=== PATIENT | male | born 1995 | race Two or more races ===

== ENCOUNTER 2020-10-25 18:07 | Emergency (ER) | payer OTHER ==
[2020-10-25 18:17] VITALS: BP 115/57; PULSE 83; TEMP 97.7; BMI 24.3
[2020-10-25] MEDS ORDERED: KETOROLAC TROMETHAMINE 30 MG/1 ML VIAL ONE (19:11)
[2020-10-25] MEDS ORDERED: KETOROLAC TROMETHAMINE 30 MG/1 ML VIAL IM ONE (19:11)
== END 2020-10-25 19:17 | disposition home or self-care (01) ==
LOC: JERFT 18:07
PROC: 3E023GC Introduction of Other Therapeutic Substance into Muscle, Percutaneous Approach (ICD-10-PCS; principal; 2020-10-25)
DX: M25.512 Pain in left shoulder (principal)
CPT/HCPCS: 73030-TC-LT-FY; 99284-25

== ENCOUNTER 2021-06-17 21:28 | Emergency (ER) | payer OTHER ==
[2021-06-17 21:55] VITALS: BP 107/69; PULSE 64; TEMP 98.2; BMI 24.3
== END 2021-06-18 00:27 | disposition home or self-care (01) ==
LOC: JERFT 21:28
DX: S69.92XA Unspecified injury of left wrist, hand and finger(s), initial encounter (principal); W19.XXXA Unspecified fall, initial encounter; Y92.9 Unspecified place or not applicable
CPT/HCPCS: 73110-TC-LT-FY; 73130-TC-LT-FY; 99284-25